=== PATIENT | male | born 1990 | race Caucasian/White ===

== ENCOUNTER 2021-01-07 01:42 | Inpatient (IN) ==
[2021-01-07] MEDS ORDERED: methylPREDNISolone SOD SUC 125 MG/2 ML VIAL IV STA (02:19)
[2021-01-07] MEDS ORDERED: HYDROmorphone 2 MG/1 ML VIAL IV STA (02:19)
[2021-01-07] MEDS ORDERED: ONDANSETRON 4 MG/2 ML VIAL IV STA (02:19)
[2021-01-07] MEDS ORDERED: PANTOPRAZOLE 40 MG VIAL IV STA (02:19)
[2021-01-07] MEDS ORDERED: SODIUM CHLORIDE 0.9% 1,000 ML IV STA (02:19)
[2021-01-07 03:03] LABS: Basophils # 0.1 10*3/uL (0.0-0.2); Basophils % 0.6 % (0.0-0.8); Eosinophils # 0.1 10*3/uL (0.0-0.87); Eosinophils % 0.9 % (0.00-10.9); Hematocrit 44.5 VOL% (42.0-52.0); Immature Granulocytes % 0.5 %; Immature Granulocytes Absolute 0.06 #; Lymphocytes # 1.5 10*3/uL (1.4-4.0); Lymphocytes % 11.8 % (21.2-54.2); Mean Corpuscular HGB Conc 33.7 GM/DL (32-36); Mean Corpuscular Volume 87.8 FL (87-102); Mean Platelet Volume 8.8 FL (9.6-12.0); Monocytes % 7.4 % (1.7-12.7); Neutrophils % 78.8 % (38.7-73.9); Platelet Count 381 T/CUMM (130-400); Red Blood Count 5.07 MC/CUMM (3.8-5.5); Red Cell Distribution Width 12.4 % (9.3-17.3); White Blood Count 12.6 T/CUMM (4-12)
[2021-01-07 03:21] LABS: Alanine Aminotransferase 43 U/L (16-61); Albumin 4.5 G/DL (3.4-5.0); Alkaline Phosphatase 96 U/L (45-117); Amylase 55 U/L (25-115); Aspartate Amino Transferase 17 U/L (0-37); Blood Urea Nitrogen 10 MG/DL (7-18); Calcium 9.9 MG/DL (8.5-10.1); Carbon Dioxide 24 MMOL/L (21-32); Estimated Glom Filtration Rate 142 ML/MIN; Glucose 109 MG/DL (74-106); Osmolality,Calculated 276.5 MOS/KG (273-304); Potassium 3.9 MMOL/L (3.5-5.1); Sodium 139 MMOL/L (136-145); Total Protein 8.6 G/DL (6.4-8.2)
[2021-01-07] MEDS ORDERED: PROMETHAZINE 25 MG/1 ML VIAL ONE (03:56)
[2021-01-07] MEDS ORDERED: PROMETHAZINE 25 MG/1 ML VIAL IM STA (04:00)
[2021-01-07] MEDS ORDERED: PIPERACILLIN/TAZOBACTAM 3,375 MG in SODIUM CHLORIDE 0.9% 100 ML IV STA (05:05)
[2021-01-07] MEDS ORDERED: ACETAMINOPHEN 325 MG TABLET PO PRN (05:33)
[2021-01-07] MEDS ORDERED: DEXTROSE 50% 25 GM/50 ML VIAL IV PRN (05:33)
[2021-01-07] MEDS: SODIUM CHLORIDE 0.9% 1,000 ML IV SCH ×2 (06:53→19:02)
[2021-01-07] MEDS: cefTRIAXone 2,000 MG in SYRINGE 1 EACH IV SCH (06:55)
[2021-01-07] MEDS: PANTOPRAZOLE 40 MG TABLET PO SCH (09:45)
[2021-01-07] MEDS: predniSONE 20 MG TABLET PO SCH (09:45)
[2021-01-07] MEDS: metroNIDAZOLE 500 MG TABLET PO SCH ×3 (09:45→20:53)
[2021-01-07 14:43] LABS: Bilirubin,Urine Negative (Negative); Blood, Urine Negative (Negative); Glucose,Urine (UA) 150 mg/dL (Negative); Ketones,Urine 80 mg/dL (Negative); Mucus,Urine Occasional /LPF (Occasional); Nitrite,Urine Negative (Negative); Protein,Urine Negative; RBC,Urine 1 /HPF (0-4); Urine Appearance CLEAR (Clear); Urine Color Yellow (Yellow); Urine Urobilinogen < 2.0 EU/DL (0.2-1.0); WBC,Urine 4 /HPF (0-6)
[2021-01-07] MEDS ORDERED: POLYETHYLENE GLYCOL POWDER 255 GM BOTTLE PO ONE (18:00)
[2021-01-07 20:54] LABS: Barbiturates Screen,Urine Negative (Negative); Benzodiazepines Screen,Urine Negative (Negative); Cannabinoid Screen,Urine Positive (Negative); Opiate Screen,Urine Positive (Negative); Phencyclidine Screen,Urine Negative (Negative)
[2021-01-07] MEDS: ONDANSETRON 4 MG/2 ML VIAL IV PRN (22:19)
[2021-01-08] MEDS: SODIUM CHLORIDE 0.9% 1,000 ML IV SCH ×4 (00:15→20:37)
[2021-01-08] MEDS: ONDANSETRON 4 MG/2 ML VIAL IV PRN ×2 (03:43→20:48)
[2021-01-08] MEDS: cefTRIAXone 2,000 MG in SYRINGE 1 EACH IV SCH (06:44)
[2021-01-08 07:08] LABS: Calcium 8.8 MG/DL (8.5-10.1); Potassium 4.3 MMOL/L (3.5-5.1)
[2021-01-08] MEDS ORDERED: LACTATED RINGERS 1,000 ML IV SCH (08:00)
[2021-01-08 08:14] LABS: Basophils % 0.2 % (0.0-0.8); Eosinophils % 0.3 % (0.00-10.9); Hematocrit 40.6 VOL% (42.0-52.0); Hemoglobin 13.2 GM/DL (14.0-18.0); Immature Granulocytes % 0.4 %; Immature Granulocytes Absolute 0.04 #; Lymphocytes # 1.5 10*3/uL (1.4-4.0); Mean Corpuscular HGB Conc 32.5 GM/DL (32-36); Mean Corpuscular Volume 90.2 FL (87-102); Mean Platelet Volume 8.6 FL (9.6-12.0); Monocytes % 13.6 % (1.7-12.7); Neutrophils % 68.5 % (38.7-73.9); Platelet Count 315 T/CUMM (130-400); Red Cell Distribution Width 12.7 % (9.3-17.3)
[2021-01-08] MEDS: PANTOPRAZOLE 40 MG TABLET PO SCH (09:00)
[2021-01-08] MEDS: metroNIDAZOLE 500 MG TABLET PO SCH ×3 (09:00→20:48)
[2021-01-08] MEDS: predniSONE 20 MG TABLET PO SCH (09:00)
[2021-01-08] MEDS ORDERED: POLYETHYLENE GLYCOL POWDER 255 GM BOTTLE PO ONE (10:43)
[2021-01-09] MEDS: SODIUM CHLORIDE 0.9% 1,000 ML IV SCH ×3 (06:25→22:27)
[2021-01-09] MEDS: cefTRIAXone 2,000 MG in SYRINGE 1 EACH IV SCH (06:26)
[2021-01-09] MEDS ORDERED: propofoL 200 MG/20 ML VIAL IV ONE ×3 (07:20→08:00)
[2021-01-09] MEDS ORDERED: LIDOCAINE 2% 5 ML VIAL ONE (07:20)
[2021-01-09] MEDS: LACTATED RINGERS 1,000 ML IV SCH (07:30)
[2021-01-09] MEDS: ONDANSETRON 4 MG/2 ML VIAL IV PRN ×3 (10:40→21:00)
[2021-01-09] MEDS: MORPHINE 4 MG/1 ML VIAL IV PRN ×3 (10:41→21:04)
[2021-01-09] MEDS: methylPREDNISolone SOD SUC 40 MG/1 ML VIAL IV SCH ×2 (10:44→21:06)
[2021-01-09] MEDS: PANTOPRAZOLE 40 MG TABLET PO SCH (11:08)
[2021-01-09] MEDS: predniSONE 20 MG TABLET PO SCH (11:08)
[2021-01-09] MEDS: metroNIDAZOLE 500 MG TABLET PO SCH ×3 (11:08→20:58)
[2021-01-09] MEDS: MESALAMINE 250 MG CAPSULE PO SCH ×3 (12:09→20:58)
[2021-01-10] MEDS: cefTRIAXone 2,000 MG in SYRINGE 1 EACH IV SCH (05:06)
[2021-01-10] MEDS: SODIUM CHLORIDE 0.9% 1,000 ML IV SCH ×2 (07:10→14:25)
[2021-01-10] MEDS: LACTATED RINGERS 1,000 ML IV SCH (08:00)
[2021-01-10] MEDS: PANTOPRAZOLE 40 MG TABLET PO SCH (09:51)
[2021-01-10] MEDS: metroNIDAZOLE 500 MG TABLET PO SCH ×2 (09:51→14:59)
[2021-01-10] MEDS: MESALAMINE 250 MG CAPSULE PO SCH ×2 (09:55→12:47)
[2021-01-10] MEDS: methylPREDNISolone SOD SUC 40 MG/1 ML VIAL IV SCH (10:00)
[2021-01-10 15:41] VITALS: BP 143/78
== END 2021-01-10 16:25 | disposition home or self-care (01) | DRG 386 ==
LOC: N.ED 01:42 → N.EDINP 05:33 → N.3E 06:32
PROVIDERS: ADMIT Hospitalist; ATTEND Hospitalist
PROC: COLONBX (2021-01-09 06:05)